=== PATIENT | male | born 1940 | race Two or more races ===

== ENCOUNTER 2025-07-02 11:46 | Emergency (ER) | payer OTHER ==
[~2025-07-02] VITALS: Ht 172.7 cm; Wt 72.6 kg
[2025-07-02] MEDS ORDERED: 0.9 % SODIUM CHLORIDE 1,000 ML IV ONE (13:15)
[2025-07-02] MEDS ORDERED: FAMOTIDINE/PF 20 MG/2 ML VIAL IV ONE (13:15)
[2025-07-02] MEDS ORDERED: MORPHINE SULFATE 4 MG/ML VIAL IV PRN (13:15)
[2025-07-02] MEDS ORDERED: ONDANSETRON HCL 4 MG in DEXTROSE 5 % IN WATER 50 ML IV PRN (13:15)
[2025-07-02] MEDS ORDERED: ONDANSETRON HCL 2 MG/ML VIAL ONE (15:09)
[2025-07-02] MEDS ORDERED: FAMOTIDINE/PF 20 MG/2 ML VIAL ONE (15:09)
[2025-07-02] MEDS ORDERED: INSULIN LISPRO 1,000 UNIT/10 ML UNITS SUBCUTANEO PRN (15:45)
[2025-07-02] MEDS ORDERED: DEXTROSE 50 % IN WATER 0.5 G/ML DISP.SYRIN IV PRN (15:45)
[2025-07-02 16:29] LABS: BASO % 0.1 % (0.1-1.2); EOS # 0.00 (0.04-0.54); EOS % 0.0 % (0.7-7.0); LYMPH # 0.78 (1.18-3.74); LYMPH % 6.1 % (19.3-53.1); MEAN PLATELET VOLUME 9.90 fl (9.4-12.4); MONO # 0.52 (0.24-0.82); MONO % 4.1 % (4.7-12.5); NEUT # 11.38 (1.56-6.13); NEUT % 89.4 % (34.0-71.1); RED CELL DISTRIBUTION WIDTH 13.0 % (11.6-14.4)
[2025-07-02 17:00] LABS: INR 1.12
[2025-07-02 17:08] LABS: ALT/SGPT 31.0 U/L (12-78); AST/SGOT 21.0 U/L (15-37); BILIRUBIN TOTAL 1.05 mg/dL (0.3-1.2); BUN CREA RATIO 20.0 (7.0-25.0); CREATININE SERUM 1.28 mg/dL (0.70-1.30); GFR 53.54; GLOBULINA 3.3 G/DL (2.4-3.5); GLUCOSE FASTING 129.0 mg/dL (65-100); OSMOLALITY SERUM 291.0 MOSM/KG (275-295)
[2025-07-02 21:09] LABS: URINE APPEARANCE Clear; URINE BILIRRUBIN Negative (NEGATIVE); URINE BLOOD Large; URINE COLOR Yellow; URINE GLUCOSE Negative (NEGATIVE); URINE KETONE Trace (NEGATIVE); URINE LEUKOCYTE Negative; URINE NITRATE Negative; URINE UROBILINOGEN 0.2 E.U./dl
[2025-07-02 21:14] LABS: URINE BACTERIA 11.4 uL (0.0-1933); URINE EPITHELIAL CELLS 7.6 uL (0.0-38.8); URINE RBC 45.0 uL (0.0-20.8); URINE WBC 14.1 uL (0.0-23.2)
[2025-07-02 22:32] LABS: URINE CAST 0.84 uL (0.0-1.40); URINE PROTEIN 300 (NEGATIVE)
[2025-07-02] MEDS ORDERED: LORazepam 2 MG/ML VIAL IM ONE (23:00)
[2025-07-03] MEDS ORDERED: LORazepam 2 MG/ML VIAL ONE (00:14)
== END 2025-07-03 02:57 | disposition home or self-care (01) ==
LOC: ER 11:47
PROVIDERS: General Practice
DX: K40.90 Unilateral inguinal hernia, without obstruction or gangrene, not specified as recurrent (principal); N43.2 Other hydrocele; N28.1 Cyst of kidney, acquired; N20.0 Calculus of kidney; K80.80 Other cholelithiasis without obstruction; E11.9 Type 2 diabetes mellitus without complications; I10 Essential (primary) hypertension; Z85.51 Personal history of malignant neoplasm of bladder